=== PATIENT | female | born 2000 | race African-American/Black ===

== ENCOUNTER 2024-09-11 02:54 | Emergency (ER) | payer BC ==
[~2024-09-11] VITALS: Ht 157.5 cm; Wt 78.0 kg
[2024-09-11 03:05] VITALS: TEMP 36.6; O2SAT 98
[2024-09-11 03:44] LABS: CLARITY URINE CLEAR (CLEAR); COLOR URINE YELLOW (YELLOW); GLUCOSE URINE NEGATIVE (NEGATIVE); KETONES URINE NEGATIVE (NEGATIVE); LEUKOCYTE ESTERASE URINE 1+ (NEGATIVE); NITRITE URINE NEGATIVE (NEGATIVE); OCCULT BLOOD URINE TRACE (NEGATIVE); PH URINE 6.5 (4.5-8.0); PROTEIN URINE NEGATIVE (NEGATIVE); SPECIFIC GRAVITY URINE 1.016 (1.005-1.030)
[2024-09-11] MEDS: CYCLOBENZAPRINE 10MG TABLET PO ONE (04:09)
[2024-09-11] MEDS: LIDOCAINE 5% PATCH TOP SCH (04:09)
[2024-09-11] MEDS: KETOROLAC 15MG/ML VIAL IM ONE (04:10)
[2024-09-11 04:23] LABS: BACTERIA URINE TRACE; RBC URINE NONE SEEN /hpf (0-2); SQUAMOUS EPITHELIAL CELL URINE 1+ /lpf (RARE/1+); WBC URINE 0-2 /hpf (0-2)
[2024-09-11 04:24] LABS: AMORPHOUS SEDIMENT URINE 1+ /lpf
[2024-09-11] MEDS ORDERED: NAPR-1176 MT (04:35)
[2024-09-11] MEDS ORDERED: LIDO-53 TP (04:35)
[2024-09-11 05:03] VITALS: BP 98/74; PULSE 76; RESP 12; O2SAT 100
== END 2024-09-11 05:08 | disposition home or self-care (01) ==
LOC: ER 03:06
DX: M54.6 Pain in thoracic spine (principal)
CPT/HCPCS: 99283; 81003; 81025; 96372; J1885